=== PATIENT | male | born 1950 | race African-American/Black ===

== ENCOUNTER 2017-03-20 22:09 | Emergency (ER) | payer OTHER, BC ==
[~2017-03-20] VITALS: Ht 157.5 cm; Wt 113.0 kg
[~2017-03-20 22:09] MED LIST: FLOMAX; GLIPIZIDE ER10 MG; LISINOPRIL40 MG; LOPRESSOR; PERCOCET 5-3251 EACH PO; PREVACID 30MG C30 M1 PO
[2017-03-20] MEDS ORDERED: HUMALOG PE100 UNIT/M SC (22:25)
[2017-03-20] MEDS ORDERED: LANTUS SOL100 UNIT/1 (22:25)
[2017-03-20] MEDS ORDERED: ZOCOR20 MG PO (22:26)
[2017-03-20 23:21] VITALS: BP 143/88
== END 2017-03-20 23:25 | disposition home or self-care (01) ==
LOC: ER 22:09
DX: M79.604 Pain in right leg (principal); S09.90XA Unspecified injury of head, initial encounter; E11.9 Type 2 diabetes mellitus without complications; I10 Essential (primary) hypertension; F17.210 Nicotine dependence, cigarettes, uncomplicated; V89.2XXA Person injured in unspecified motor-vehicle accident, traffic, initial encounter; Y93.I9 Activity, other involving external motion; Y92.488 Other paved roadways as the place of occurrence of the external cause; Y99.8 Other external cause status